=== PATIENT | female | born 1970 | race Caucasian/White ===

== ENCOUNTER 2016-10-25 20:26 | Emergency (ER) | END 2016-10-26 01:48 | disposition home or self-care (01) | DX: R10.84 Generalized abdominal pain (principal); F17.210 Nicotine dependence, cigarettes, uncomplicated | CPT/HCPCS: 71010; 74176; 76705; 80053; 81003; 83690; 85025; J2270; J2405 ==

== ENCOUNTER 2017-03-01 07:11 | Day surgery (SDC) | payer BC ==
[~2017-03-01] VITALS: Ht 160 cm; Wt 73.3 kg
[~2017-03-01 07:11] MED LIST: DENIES; FAMO-18 PO; HYDR-906 PO; POLY17PO6 PO
[2017-03-01 08:03] VITALS: Ht 160 cm; Wt 73.3 kg
[2017-03-01] MEDS ORDERED: MEPE50TA7 PO (08:15)
[2017-03-01] MEDS ORDERED: FENTAnyl 50 MCG/ML VIAL ONE (08:29)
[2017-03-01] MEDS ORDERED: MIDAZOLAM 1 MG/ML 2 ML INJ ONE (08:29)
[2017-03-01 08:33] VITALS: BP 143/69; PULSE 75; RESP 21
[2017-03-01] MEDS ORDERED: PROPOFOL 40 ML ONE (08:34)
[2017-03-01 09:20] VITALS: BP 140/77; PULSE 69; RESP 15
[2017-03-01] MEDS ORDERED: TRAMADOL PO (09:46)
--- NOTE | 2017-03-01 11:28 | GILP ---
DATE OF PROCEDURE: 03/01/2017 PROCEDURE PERFORMED: 1. Esophagogastroduodenoscopy with biopsy. 2. Colonoscopy. SURGEON: Mita Benjamin MD INDICATION: A 47-year-old female undergoing this procedure for abdominal pain. The purpose is to e valuate the upper GI, lower GI tract, find out the cause of her chronic symptoms. INFORMED CONSENT: The risk of the procedure, related and unrelated complications, anesthetic risks, alternatives discussed and informed consent was obtained. DESCRIPTION OF PROCEDURE: The patient was brought to the GI lab, sedated by the anesthesiologist. After optimal sedation, scope was passed with much ease into the esophagus which showed esophageal m oniliasis. The patient also had an esophageal ulcer, LA class B. It was a 2 to 3 cm in length. Z- line was regular and it was at 35 cm. Stomach mucosa revealed gastritis. Four biopsies obtained to rule out H. pylori infection. Duodenum first and second part were within normal limits. Retrovers ion done in the stomach which was normal. Scope was straightened out and removed with good patient tolerance. IMPRESSION: 1. Esophageal moniliasis. 2. Z-line at 35 cm. 3. Esophageal ulcer. 4. Gastritis. 5. Normal duodenum. PLAN: Review the histopathology. In the interim, patient will be placed on nystatin or fluconazole tablet. COLONOSCOPY: The patient was turned around, scope was passed with much ease into rectum, advanced t hrough sigmoid, descending, transverse colon all the way into cecum. IC valve and appendiceal orifi ce identified. Those were covered with a thin layer of the stool, but grossly normal. Rest of the colon appeared normal. Few diverticula seen on the right side and very small mild diverticula seen on the left side of the colon. Retroversion done, no growth seen. Scope was straightened out and r emoved with good patient tolerance. IMPRESSION: 1. Diverticulosis, mild both right and left side of the colon, otherwise negative all the way into cecum. 2. Clarity was good. 3. Cleanliness was adequate. 4. Retroversion was normal. PLAN: To stay on high-fiber diet. Since the patient has a dilated biliary system on CAT scan, I wi ll ask for MRCP and hopefully the insurance company approves it. Dictated By: MITA BARNETT/STEFANIE Conf#: [id number] DID#: [id number] CC: MITA BENJAMIN MD;*[facility]*
== END 2017-03-01 16:39 | disposition home or self-care (01) ==
LOC: GIL 07:11
PROVIDERS: ATTEND Internal Medicine Gastroenterology
DX: K29.30 Chronic superficial gastritis without bleeding (principal); K22.10 Ulcer of esophagus without bleeding; K57.90 Diverticulosis of intestine, part unspecified, without perforation or abscess without bleeding
CPT/HCPCS: 43239; 45378; 88305; 88312; J2250; J3010; Z7610

== ENCOUNTER 2018-03-09 15:51 | Emergency (ER) | END 2018-03-09 18:38 | disposition home or self-care (01) ==

== ENCOUNTER 2018-03-30 16:33 | Emergency (ER) | END 2018-03-30 19:01 | disposition home or self-care (01) ==

== ENCOUNTER 2019-05-18 10:28 | Emergency (ER) | payer BC ==
[~2019-05-18] VITALS: Ht 157.5 cm; Wt 76.1 kg
[~2019-05-18 10:28] MED LIST changes: -DENIES; -FAMO-18 PO; +HYDR-4011 PO; -HYDR-906 PO; +IBUP-1542 PO; -POLY17PO6 PO; +PRED20TA PO; +TRAMADOL PO
[2019-05-18 10:35] VITALS: BP 139/72; PULSE 78; RESP 17; Ht 157.5 cm; Wt 76.1 kg
--- NOTE | 2019-05-18 13:33 | ERD ---
ER Documentation Chief Complaint Chief Complaint NUMBNESS ON LEFT ARM, CHEST WALL PAIN, ONSET 3 DAYS HPI 49-year-old female no significant past medical history presents to the emergency room complaining of numbness to the left side of her body. The patient describes intermittent symptoms over the last 3 days. She states increasing social stressors during this timeframe. She denies any fevers chills facial droop slurred speech, ataxia or headache. No recent fevers chills cough or shortness of breath. ROS All systems reviewed and are negative except as per history of present illness. Medications Home Meds Active Scripts Hydrocodone/Acetaminophen ([place] 5-325 Tablet) 1 Each Tablet, 1 TAB PO Q6H PRN for PAIN, #7 TAB Prov:PAULY QUEZADA PA-C 03/30/18 Ibuprofen* (Motrin*) 600 Mg Tab, 600 MG PO Q6, #30 TAB Prov:PAULY QUEZADA PA-C 18 Hydrocodone/Acetaminophen ([place] 5-325 Tablet) 1 Each Tablet, 1 TAB PO Q6H PRN for PAIN, #15 TAB Prov:MELO GAVIRIA MD 03/09/18 Prednisone* (Prednisone*) 20 Mg Tab, 40 MG PO DAILY for 5 Days, TAB Prov:MELO GAVIRIA MD 03/09/18 Reported Medications [Tramadol] No Conflict Check, PO DAILY 03/01/17 Allergies Allergies: Coded Allergies: No Known Allergies (Verified Allergy, Mild, 06/18/15) PMhx/Soc Medical and Surgical Hx: pt denies Surgical Hx History of Surgery: No Anesthesia Reaction: No Hx Neurological Disorder: No Hx Respiratory Disorders: No Hx Cardiac Disorders: Yes (HLD) Hx Psychiatric Problems: No Hx Miscellaneous Medical Probl: No Hx Alcohol Use: No Hx Substance Use: No Hx Tobacco Use: Yes Smoking Status: Current every day smoker FmHx Family History: No diabetes Physical Exam Vitals Vital Signs Date Temp Pulse Resp B/P (MAP) Pulse Ox O2 O2 Flow FiO2 Time Delivery Rate 05/18/19 97.5 78 17 139/72 99 10:35 (94) Physical Exam General: Well developed, well nourished, no acute distress Head: Normocephalic, atraumatic. Eyes: Pupils equally reactive, EOM intact ENT: Moist mucous membranes Neck: Supple, no lymphadenopathy Respiratory: Lungs clear bilaterally, no distress Cardiovascular: RRR, no murmurs, rubs, or gallops Abdominal: Soft, non-tender, non-distended, no peritoneal signs : Deferred MSK: No edema, no unilateral swelling, 5/5 strength Neurologic: Alert and oriented, moving all extremities, normal speech, no focal weakness, no cerebellar signs, no sensory deficit to the left jacoby-body Skin: No rash Psych: Normal mood Result Diagram: 05/18/19 1054 05/18/19 1054 Results 24 hrs Laboratory Tests Test 05/18/19 10:54 White Blood Count 10.0 10^3/ul Red Blood Count 4.63 10^6/ul Hemoglobin 13.8 g/dl Hematocrit 42.6 % Mean Corpuscular Volume 92.0 fl Mean Corpuscular Hemoglobin 29.8 pg Mean Corpuscular Hemoglobin Concent 32.4 g/dl Red Cell Distribution Width 13.1 % Platelet Count 356 10^3/UL Mean Platelet Volume 10.0 fl Immature Granulocytes % 0.300 % Neutrophils % 58.2 % Lymphocytes % 33.2 % Monocytes % 6.9 % Eosinophils % 0.9 % Basophils % 0.5 % Nucleated Red Blood Cells % 0.0 /100WBC Immature Granulocytes # 0.030 10^3/ul Neutrophils # 5.9 10^3/ul Lymphocytes # 3.3 10^3/ul Monocytes # 0.7 10^3/ul Eosinophils # 0.1 10^3/ul Basophils # 0.1 10^3/ul Nucleated Red Blood Cells # 0.0 10^3/ul Sodium Level 138 mmol/L Potassium Level 4.4 mmol/L Chloride Level 104 mmol/L Carbon Dioxide Level 25 mmol/L Anion Gap 9 Blood Urea Nitrogen 12 mg/dl Creatinine 0.69 mg/dl Est Glomerular Filtrat Rate mL/min > 60 mL/min Glucose Level 81 mg/dl Calcium Level 9.8 mg/dl Troponin I < 0.012 ng/ml Procedures/[facility] EKG, MONITORS, & DIAGNOSTIC IMAGING: Chest x-ray: I reviewed and interpreted a 1 view of the chest Mediastinum: No enlargement Cardiac silhouette: No cardiomegaly Airspace: Clear lung dominguez bilaterally without evidence of pneumothorax Bones: No evidence of fracture EKG: I reviewed and interpreted a 12-lead EKG. Rhythm: Normal sinus rhythm ST Changes: No contiguous ST segment elevations T waves: No contiguous T wave inversions Impression: No evidence of acute cardiac ischemia LAB INTERPRETATION: I reviewed the laboratory testing and it shows no evidence of acute process MEDICAL DECISION MAKING: The patient's presentation is consistent with nonspecific paresthesia and possibly palpitation. Patient exhibits no clinical signs or symptoms concerning for acute stroke syndrome. The patient notes increasing social stressors and anxiety which is the likely etiology to her symptoms. She has no exertional symptoms. Reassurance was provided. Again she has a nonfocal neurologic examin ation with no focal deficits suggestive of stroke syndrome. ER COURSE: * Laboratory testing and diagnostic imaging is unrevealing. Patient provided with reassurance. At this time the patient can be safely discharged with close primary care follow-up. CONSULTATION: None DISPOSITION PLAN: The patient does not have an identifiable emergent medical condition that warrants inpatient hospitalization at this time. The patient is deemed safe for discharge with outpatient follow-up. We discussed follow up with the patient's primary care doctor within 24 to 48 hours as needed. We also discussed return to the emergency room for worsening symptoms or worsening condition. Outpatient referral: None required Discharge Medications: None required Departure Diagnosis: Primary Impression: Paresthesia Condition: Stable Patient Instructions: Paraesthesias Additional Instructions: Call your primary care doctor TOMORROW for an appointment during the next 1 WEEK.Tell the office secretary that you were referred from this facility.See the doctor sooner or return here if your condition worsens before your appointment time. NENO REYES MD May 18, 2019 13:33
== END 2019-05-18 12:36 | disposition home or self-care (01) ==
LOC: E/R 10:28
DX: R20.2 Paresthesia of skin (principal); R40.2142 Coma scale, eyes open, spontaneous, at arrival to emergency department; R40.2252 Coma scale, best verbal response, oriented, at arrival to emergency department; R40.2362 Coma scale, best motor response, obeys commands, at arrival to emergency department; F17.210 Nicotine dependence, cigarettes, uncomplicated; R07.9 Chest pain, unspecified
CPT/HCPCS: 71045; 80048; 84484; 85025; Z7502; 93005